=== PATIENT | female | born 2000 | race Caucasian/White ===

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

== ENCOUNTER 2019-06-20 17:54 | Emergency (ER) | payer OTHER ==
[~2019-06-20] VITALS: Ht 162.6 cm; Wt 87.8 kg
[~2019-06-20 17:54] MED LIST: DOXY100T20 PO; IBUP-1542 PO; ONDA4TAB8 PO
[2019-06-20 18:03] VITALS: BP 122/65; PULSE 54; RESP 18; Ht 162.6 cm; Wt 87.8 kg
--- NOTE | 2019-06-20 20:24 | ERD ---
ER Documentation Chief Complaint Chief Complaint fever , chills , body ache x 10 days ,recently travelled to [facility] This a previously healthy 18-year-old female presenting to the emergency department complaining of intermittent chills for the past 1.5 weeks. Patient states symptoms started after a 2-week vacation in [place]. Her symptoms have improved overall. She states she had a fever initially but this is resolved. She does not report full body rash and a dry cough. She denies any abdominal pain, nausea, vomiting, diarrhea, or other symptoms at this time. She took Motrin at home with some relief. ROS All systems reviewed and are negative except as per history of present illness. Medications Home Meds Active Scripts Ibuprofen* (Motrin*) 600 Mg Tab, 600 MG PO Q6, #30 TAB Prov:MAURICIO CARRANZA PA-C 06/20/19 Doxycycline Hyclate* (Doxycycline Hyclate*) 100 Mg Tablet.dr, 100 MG PO BID for 10 Days, TAB Prov:MAURICIO CARRANZA PA-C 06/20/19 Ondansetron Hcl* (Zofran*) 4 Mg Tablet, 4 MG PO Q6H for NAUSEA AND/OR VOMITING, #30 TAB Prov:ELLY PERRIN PA-C 01/23/17 Ibuprofen* (Motrin*) 600 Mg Tab, 600 MG PO Q6, #30 TAB Prov:ELLY PERRIN PA-C 01/23/17 PMhx/Soc Medical and Surgical Hx: pt denies Medical Hx, pt denies Surgical Hx Hx Alcohol Use: No Hx Substance Use: No Hx Tobacco Use: No Smoking Status: Never smoker FmHx Family History: No diabetes Physical Exam Vitals Vital Signs Date Temp Pulse Resp B/P (MAP) Pulse Ox O2 O2 Flow FiO2 Time Delivery Rate 06/20/19 97.7 54 18 122/65 100 18:03 (84) Physical Exam Const: No acute distress Head: Atraumatic Eyes: Normal Conjunctiva ENT: Normal External Ears, Nose and Mouth. Neck: Full range of motion. No meningismus. Resp: Clear to auscultation bilaterally Cardio: Regular rate and rhythm, no murmurs Abd: Soft, non tender, non distended. Normal bowel sounds. No rebound tenderness or guarding. No McBurney's point tenderness. Skin: Macular papular, nonvesicular rash scattered on the body. No skin sloughing. Back: No midline or flank tenderness Ext: No cyanosis, or edema Neur: Awake and alert Psych: Normal Mood and Affect Procedures/MDM This patient is a 18-year-old female presenting to the emergency department complaining of full body rash, body aches, fevers and chills. Physical examination does reveal a macular papular rash scattered on the body. Differential diagnoses included malaria, Lyme disease, urticaria, and others. Patient will be treated as an outpatient with a prescription for doxycycline in case of infectious etiology. No evidence to suggest metritis, sepsis, serious bacterial infection, acute abdomen, or other emergent process. Patient is nontoxic and well-appearing and she will be discharged home in stable condition. Patient advised to return immediately for any new or concerning symptoms. She should otherwise have close follow-up with her primary care physician. The patient was in agreement with the diagnosis, plan, need for follow-up, return precautions. Departure Diagnosis: Primary Impression: Rash and other nonspecific skin eruption Condition: Fair Patient Instructions: Doxycycline Hyclate Oral capsule Additional Instructions: Call your primary care doctor TOMORROW for an appointment during the next 1-2 days.See the doctor sooner or return here if your condition worsens before your appointment time. MAURICIO CARRANZA PA-C Jun 20, 2019 20:24
== END 2019-06-20 19:56 | disposition home or self-care (01) ==
LOC: FTE 17:54
DX: R21 Rash and other nonspecific skin eruption (principal)
CPT/HCPCS: 99283